=== PATIENT | female | born 1975 | race African-American/Black ===

== ENCOUNTER 2023-07-16 00:38 | Emergency (ER) | payer SELFPAY ==
[~2023-07-16] VITALS: Ht 167.6 cm; Wt 76.0 kg
[2023-07-16 00:53] VITALS: TEMP 98.3
[2023-07-16 02:15] VITALS: BP 145/82; PULSE 72; RESP 14
[2023-07-16] MEDS: METOCLOPRAMIDE HCL 5MG TABLET PO ONE (02:15)
[2023-07-16] MEDS: KETOROLAC 15MG/ML VIAL IM ONE (02:15)
[2023-07-16] MEDS ORDERED: LIDO700A15 TP (03:19)
[2023-07-16] MEDS ORDERED: NAPR-1176 MT (03:19)
== END 2023-07-16 03:28 | disposition home or self-care (01) ==
LOC: ER 01:40
DX: R51.9 Headache, unspecified (principal); G89.29 Other chronic pain; M54.9 Dorsalgia, unspecified
CPT/HCPCS: 99282; 81025; J8597; J1885